=== PATIENT | male | born 1995 | race Caucasian/White ===

== ENCOUNTER 2018-10-23 17:29 | Emergency (ER) | payer SELFPAY ==
--- NOTE | 2018-10-23 18:59 | EDM.PDOC ---
ED HPI GENERAL MEDICAL PROBLEM - General Chief Complaint: General Stated Complaint: SORE THROAT Time Seen by Provider: 10/23/18 18:15 Source of Information: Reports: Patient History Limitations: Reports: No Limitations - History of Present Illness INITIAL COMMENTS - FREE TEXT/NARRATIVE: According to patient , he has been having nasal congestion and cold for past 4- 5 days. Claims he has been having cough with mucoid sputum. There is nasal drainage which is thick too. Cough gets worse at night. No fever or chills. No wheezing or shortness of breath. No nausea or vomiting. Also patient claims that he has been having sore throat for the same period. Hurts and itches in the throat. No redness. No swollen neck nodes. No difficulty breathing. Onset: Gradual Onset Date: 10/18/18 Duration: Day(s): (4-5) Severity: Mild Improves with: Reports: None Worsens with: Reports: None Associated Symptoms: Reports: Cough. Denies: Confusion, Chest Pain, Fever/ Chills, Headaches, Nausea/Vomiting, Rash, Shortness of Breath, Weakness Throat Pain Score (Numeric/FACES): 7 - Related Data Allergies Allergy/AdvReac Type Severity Reaction Status Date / Time No Known Allergies Allergy Verified 10/23/18 18:40 ED ROS GENERAL - Review of Systems Review Of Systems: See Below Constitutional: Denies: Fever HEENT: Reports: Rhinitis, Throat Pain. Denies: Ear Pain, Eye Discharge Respiratory: Reports: Cough, Sputum. Denies: Shortness of Breath, Wheezing, Pleuritic Chest Pain Cardiovascular: Denies: Chest Pain, Lightheadedness GI/Abdominal: Denies: Abdominal Pain, Nausea, Vomiting : Denies: Flank Pain, Frequency Musculoskeletal: Denies: Joint Pain, Joint Swelling Skin: Denies: Bruising, Pruritis, Rash ED EXAM, GENERAL - Physical Exam Exam: See Below Exam Limited By: No Limitations General Appearance: Alert, WD/WN, No Apparent Distress Eye Exam: Bilateral Eye: EOMI, PERRL Ears: Normal External Exam, Normal Canal, Hearing Grossly Normal, Normal TMs Ear Exam: Bilateral Ear: Auricle Normal, Canal Normal, TM normal Nose: Normal Inspection, No Blood, Nasal Drainage (mucoid thick) Throat/Mouth: Normal Inspection, Normal Lips, Normal Teeth, Normal Gums, Normal Oropharynx, Normal Voice, No Airway Compromise Head: Atraumatic, Normocephalic Neck: Normal Inspection, Supple, Non-Tender, Full Range of Motion Respiratory/Chest: No Respiratory Distress, Lungs Clear, Normal Breath Sounds, No Accessory Muscle Use, Chest Non-Tender Cardiovascular: Normal Peripheral Pulses, Regular Rate, Rhythm, No Edema, No Gallop, No JVD, No Murmur, No Rub Course - Vital Signs Text/Narrative:: Pt has URI symptoms. His pharynx appears normal. Vitals are stable. Strep test is negative and his CbC shows normal white count. Pt reassured that he has viral URI. Advised stem inhalations 2-3 times daily. Salt water gargles 2-3 times daily. Motrin 800mg 3 times daily. Also advised Zyrtec 10mg daily for nasal symptoms. The symptoms should gradually improve in the next 3-5 days. Followup in clinic if not better or symptoms worsen. Last Recorded V/S: Last Vital Signs Temp 97.8 F 10/23/18 18:27 Pulse 79 10/23/18 18:42 Resp 18 10/23/18 18:42 BP 154/97 H 10/23/18 18:42 Pulse Ox 100 10/23/18 18:42 - Orders/Labs/Meds Labs: Laboratory Tests 10/23/18 Range/Units 18:30 WBC 5.9 (4.0-11.0) K/uL RBC 4.83 (4.50-6.50) M/uL Hgb 15.6 (13.0-18.0) g/dL Hct 44.1 (40.0-54.0) % MCV 91 (76-96) fL MCH 32.3 H (27.0-32.0) pg MCHC 35.4 H (31.0-35.0) g/dL RDW 13.3 (11.0-16.0) % Plt Count 160 (150-400) K/uL MPV 9.8 (6.0-10.0) fL Neut % (Auto) 75.6 H (45.0-70.0) % Lymph % (Auto) 12.0 L (20.0-40.0) % [place] % (Auto) 10.8 H (3.0-10.0) % Eos % (Auto) 0.9 L (1.0-5.0) % Baso % (Auto) 0.7 H (0.0-0.5) % Neut # (Auto) 4.43 (2.00-7.50) K/uL Lymph # (Auto) 0.70 L (1.50-4.00) K/uL [place] # (Auto) 0.63 (0.20-0.80) K/uL Eos # (Auto) 0.05 (0.04-0.40) K/uL Baso # (Auto) 0.04 (0.02-0.10) K/uL Departure - Departure Time of Disposition: 17:00 Disposition: Home, Self-Care 01 Condition: Fair Clinical Impression: Viral URI with cough - Discharge Information *PRESCRIPTION DRUG MONITORING PROGRAM REVIEWED*: Not Applicable *COPY OF PRESCRIPTION DRUG MONITORING REPORT IN PATIENT EDISON: Not Applicable Referrals: PCP,None [Primary Care Provider] - - Problem List & Annotations (1) Viral URI with cough SNOMED Code(s): 564945163 Code(s): J06.9 - ACUTE UPPER RESPIRATORY INFECTION, UNSPECIFIED; B97.89 - OTH VIRAL AGENTS THE CAUSE OF DISEASES CLASSD [id number] Status: Acute Current Visit: Yes - Problem List Review Problem List Initiated/Reviewed/Updated: Yes - Assessment/Plan Assessment:: Viral URI with cough Plan: Pt has URI symptoms. His pharynx appears normal. Vitals are stable. Strep test is negative and his CbC shows normal white count. Pt reassured that he has viral URI. Advised stem inhalations 2-3 times daily. Salt water gargles 2-3 times daily. Motrin 800mg 3 times daily. Also advised Zyrtec 10mg daily for nasal symptoms. The symptoms should gradually improve in the next 3-5 days. Followup in clinic if not better or symptoms worsen.
== END 2018-10-23 19:03 | disposition home or self-care (01) ==
LOC: LB.ED 17:29
DX: J06.9 Acute upper respiratory infection, unspecified (principal); B97.89 Other viral agents as the cause of diseases classified elsewhere
CPT/HCPCS: 36415; 85025; 87430; 99283